=== PATIENT | female | born 1940 ===

== ENCOUNTER 2024-09-20 12:46 | Emergency (ER) | payer SELFPAY ==
[2024-09-20 13:34] VITALS: BP 129/72; PULSE 76; RESP 18; TEMP 36.9; O2SAT 100; BMI 35.6
--- NOTE | 2024-09-20 13:43 | XR_ITS ---
Examination: Foot, right, 3 views Technique: AP, oblique, lateral views foot, 3 views Date and time of exam: September 20, 2024 1513 hours INDICATIONS: Swollen painful foot beginning 2 days ago. FINDINGS: Severe osteopenia Prominent hallux valgus bunion deformity with significant narrowing first second and third metatarsophalangeal joints Soft tissue vascular calcification No oscar cortical bone destruction 12 mm plantar bony calcaneal spur IMPRESSION: Severe osteopenia Prominent hallux valgus bunion deformity Significant narrowing first second and third metatarsophalangeal joints No oscar cortical bone destruction 12 mm plantar bony calcaneal spur
--- NOTE | 2024-09-20 15:38 | PD.EDADULT ---
ED General RME/HPI General Chief complaint: General Adult/Misc Complain Stated complaint: FEET HURTING/ SWOLLEN X2 DAYS Time Seen by Provider: 09/20/24 13:43 Arrival date/time: 09/20/24 12:46 84-year-old female presents to the emergency department complains of right foot pain patient reports symptoms ongoing for the last couple of days Limitations: no limitations Related Data Previous Rx's ?Medication ?Instructions ?Recorded clindamycin HCl 300 mg capsule 300 mg PO TID 7 days #21 caps 09/20/24 ibuprofen 600 mg tablet 600 mg PO Q6H #30 tabs 09/20/24 Allergies Allergy/AdvReac Type Severity Reaction Status Date / Time No Known Allergies Allergy Verified 09/20/24 12:49 Review of Systems Review of Systems Systems Reviewed: All systems reviewed, normal except as documented Constitutional Constitutional: Reports system reviewed and no additional complaints, except as documented, Denies fever(s) and Denies headache(s) Eyes Eyes: Reports system reviewed and no additional complaints, except as documented and Denies blurry vision ENT Ears, Nose, Mouth, and Throat: Reports system reviewed and no additional complaints, except as documented, Denies headache(s), Denies nasal congestion and Denies nasal discharge Cardiovascular Cardiovascular: Reports system reviewed and no additional complaints, except as documented, Denies chest pain and Denies dyspnea Respiratory Respiratory: Reports system reviewed and no additional complaints, except as documented, Denies chest congestion, Denies cough and Denies dyspnea Gastrointestinal Gastrointestinal: Reports system reviewed and no additional complaints, except as documented and Denies abdominal pain Musculoskeletal Musculoskeletal: Reports system reviewed and no additional complaints, except as documented, Reports arthralgias and Reports deformity (Bunion deformity right great toe) Integumentary/Breasts Skin/Breast: Reports system reviewed and no additional complaints, except as documented, Denies rash and Reports wounds (Small area of skin breakdown right great toe) Neurologic Neurologic: Reports system reviewed and no additional complaints, except as documented, Reports as per HPI and Denies headache(s) Past Medical History Social History SMOKING STATUS: Never smoker ED Exam General Limitations: Present no limitations General appearance: Present alert and in no apparent distress Head Head exam: Present atraumatic, normocephalic and normal inspection Eye Eye exam: Present normal appearance, PERRL and EOMI; Absent conjunctival injection ENT ENT exam: Present normal exam, normal oropharynx and mucous membranes moist Neck Neck exam: Present normal inspection, full ROM and trachea midline Chest Chest inspection: Present normal inspection and symmetric chest wall rise Respiratory Respiratory exam: Present normal lung sounds bilaterally; Absent respiratory distress Cardiovascular Cardiovascular exam: Present regular rate, normal rhythm and normal heart sounds Abdominal Exam Abdominal exam: Present soft and normal bowel sounds; Absent distention, tenderness, guarding, rebound or rigidity Extremities Exam Extremities exam: Present full ROM, tenderness (Right great toe pain) and normal capillary refill; Absent pedal edema, joint swelling or calf tenderness Expanded Lower Extremity Exam Top foot image:  1. Pain, skin breakdown Back Exam Back exam: Present normal inspection and full ROM Neurological Exam Neurological exam: Present alert, oriented X3 and CN II-XII intact Psychiatric Psychiatric exam: Present normal affect and normal mood Skin Skin exam: Present warm, dry, intact and normal color Course Quality Measures none Orders Category Date Time Status XR foot comp RT min 3V Stat Exams 09/20/24 13:43 Completed Ibuprofen Tab [Motrin Tab] Med 09/20/24 15:38 Discontinued 600 mg PO X1 ONE Lidocaine 1% 20 ml [Xylocaine 1% 20 ML] Med 09/20/24 15:38 Discontinued 2.1 ml INFL X1 ONE cefTRIAXone [Rocephin] Med 09/20/24 15:38 Discontinued 1,000 mg IM X1 ONE Vital Signs Vital signs: Vital Signs Temperature 98.5 F 09/20/24 13:34 Pulse Rate 76 09/20/24 13:34 Respiratory Rate 18 09/20/24 13:34 Blood Pressure 129/72 09/20/24 13:34 Pulse Oximetry (%) 100 09/20/24 13:34 Oxygen Delivery Method Room Air 09/20/24 13:34 O2 saturation 100% room air within normal limits MDM Patient data External records reviewed:: [facility] previous records Clinical information provided by:: patient Social determinants that could affect healthcare access:: none Patient has the following chronic illnesses:: See history How is presenting disease/condition affected by chronic disease/condition?: caused by Evaluation data The following diagnostics were reviewed and interpreted by me:: radiology exam(s) Lab and/or radiology exams considered but not ordered:: Radiology obtain Interpretation Summary: Reviewed by me Medications Medications considered but not ordered:: Given Medication administrations:: Medication Administration History Discontinued Medications Ceftriaxone Sodium (Ceftriaxone Sod Inj 1,000 Mg Vial) 1,000 mg IM X1 ONE Stop: 09/20/24 15:39 Last Admin: 09/20/24 15:49 Dose: 1,000 mg Documented By: EO Comments: unable to scan Ibuprofen (Ibuprofen Tab 600 Mg Tablet) 600 mg PO X1 ONE Stop: 09/20/24 15:39 Last Admin: 09/20/24 15:49 Dose: 600 mg Documented By: EO Lidocaine HCl (Lidocaine Hcl 1% 20 Ml Vial) 2.1 ml INFL X1 ONE Stop: 09/20/24 15:39 Last Admin: 09/20/24 15:49 Dose: 2.1 ml Documented By: EO Given Consultations Consultation(s) initiated? (list below): No Diagnosis Differential Diagnosis ED Complaint MDM: Abscess, cellulitis, osteomyelitis, bunion Most likely diagnosis given after review of the tests above:: Following deformity, skin irritation Admission Indicated Admission indicated?: not indicated Explain why admission is indicated or not indicated:: No criteria Admission Request Was there a request for admission?: No Disposition Plan Disposition Plan: Discharge Discharge Attestation Discharge Attestation: The patient and all family members were given an opportunity to ask questions and understood the discharge instructions. Discharge instructions specifically effects, indications for sooner follow up or return to the emergency department, and the expected course of current diagnosis. Patient condition: Stable Medical Decision Making MDM Narrative MDM Narrative: 84-year-old female presents to the emergency department complains of right foot pain patient reports symptoms ongoing for the last couple of days On exam patient has bunion deformity at the base of the right great toe with a small area of skin breakdown Imaging of the right foot obtained no osteomyelitis noted no acute bony breakdown Patient given antibiotics here as well as pain medication discharged home antibiotics and pain medication I explained to the patient symptoms persist or worsen to return immediately Differential Diagnosis Differential Diagnosis: Abscess, cellulitis, osteomyelitis, bunion Medical Records Medical records reviewed: Yes I reviewed the patient's medical records. Radiology Data Radiology results reviewed: Yes I reviewed the patient's radiology results. Discharge Plan Plan Patient Disposition: HOME (Self Care) Disposition Comment: Stable Prescriptions/Referrals Prescriptions/Med Rec: New clindamycin HCl 300 mg capsule 300 mg PO TID 7 Days Qty: 21 0RF ibuprofen 600 mg tablet 600 mg PO Q6H Qty: 30 0RF Problem List Clinical Impression: Bunion of right foot Patient/Caregiver Discharge Instructions Education Materials: What Are Bunions? Additional Instructions: Please follow up with your primary care doctor in the next 24-48hrs for any worsening symptoms return here immediately Print Language: Italian Stand Alone Forms: Paola Award Info., Patient Portal Info Letter PA/CORK COMPOUNDER Supervising Physician PA/CORK COMPOUNDER Supervising Physician: Dr. Baldwin
[2024-09-20] MEDS: IBUPROFEN TAB 600 MG TABLET PO (15:49)
[2024-09-20] MEDS: cefTRIAXone SOD INJ 1,000 MG VIAL 1000 MG IM (15:49)
[2024-09-20] MEDS: LIDOCAINE HCL 1% 20 ML VIAL 2.1 ML INFL (15:49)
== END 2024-09-20 16:05 | disposition home or self-care (01) ==
PROVIDERS: Emergency Provider Emergency Medicine
DX: M21.611 Bunion of right foot (principal); L89.899 Pressure ulcer of other site, unspecified stage
CPT/HCPCS: 73630; 96372; 99283; J0696; J3490; A9270